=== PATIENT | male | born 1955 | race Caucasian/White ===

== ENCOUNTER → 2016-12-04 | Outpatient (CLI) | payer OTHER | LOC: SLEEP 21:30 | DX: G47.33 Obstructive sleep apnea (adult) (pediatric) (principal) | CPT/HCPCS: 95811 ==

== ENCOUNTER → 2017-01-03 | Outpatient (CLI) | payer OTHER | LOC: KOH-I 09:09 | DX: M25.511 Pain in right shoulder (principal) | CPT/HCPCS: 73030 ==

== ENCOUNTER → 2021-11-03 | Outpatient (CLI) | payer OTHER | LOC: LAB 11:49 | DX: R05.9 Cough, unspecified (principal); Z20.822 Contact with and (suspected) exposure to COVID-19 | CPT/HCPCS: 0241U ==

== ENCOUNTER → 2022-06-04 | Outpatient (CLI) | payer OTHER | LOC: KOH-I 12:08 | DX: M25.561 Pain in right knee (principal) | CPT/HCPCS: 73562; 73590 ==